=== PATIENT | male | born 1945 | race Caucasian/White ===

== ENCOUNTER 2025-04-23 10:06 | Outpatient (CLI) | payer MEDICARE, OTHER | END 2025-04-23 10:07 | disposition home or self-care (01) | LOC: LABBT 10:06 | PROVIDERS: ATTEND Student in an Organized Health Care Education/Training Program | DX: Z01.818 Encounter for other preprocedural examination (principal); M12.812 Other specific arthropathies, not elsewhere classified, left shoulder | CPT/HCPCS: 71046; 80053; 85025; 85610; 86850; 86900; 86901; 87081; 93005; 93010 ==